=== PATIENT | female | born 1965 | race Caucasian/White ===

== ENCOUNTER 2016-10-21 08:25 | Emergency (ER) | payer OTHER ==
--- NOTE | ~2016-10-21 | CT4 ---
[facility] A Service of [facility] RADIOLOGY TEXT RESULTS PATIENT: KHUSHI COLE LOCATION: SED : 61 UNIT #: [id number] AGE: [address]: Marcel Wade MD SEX: F ORDER DR: [id number] [place] [id number] E MR#: [id number] Acc #: [id number] NAME: KHUSHI COLE : 1965 SEX: F STUDY DATE/TIME: 10/21/2016 0940 UNIT: SED ROOM: STUDY DESCRIPTION: CT Abd and Pelv Wo Cont Attending Physician: Marcel Wade M.D. Ordering Physician: Marcel Wade M.D. Primary Care Physician: Mathieu Alvarez M.D. MEDICAL IMAGING REPORT This report is preliminary unless electronic signature is present. EXAM CT abdomen and pelvis without contrast, 10/21/2016, 0940 hours. CLINICAL HISTORY Right lower quadrant abdominal pain beginning at 0430 hours today. Nausea, vomiting, and diarrhea today. COMPARISON None TECHNIQUE Helical noncontrasted images were obtained from the lung bases through the pubic symphysis. Sagittal and coronal reconstructions were performed. Total exam DLP 831 mGy-cm. This CT exam was performed with one or more of the following radiation dose reduction techniques: automatic exposure control, adjustment of mA and/or kV according to patient size, and iterative reconstruction. FINDINGS Images through the lung bases demonstrate no acute pulmonary density or pleural effusion. The distal esophagus is normal. Images through the abdomen demonstrate diffuse low attenuation of the liver consistent with fatty change. There is no focal liver lesion. The spleen, pancreas, gallbladder, and bile ducts are normal. The adrenal glands are normal. The left kidney demonstrates an exophytic low-density lesion measuring 2.9 cm and 0 Hounsfield units, most likely a simple cyst. There are no left intrarenal stones. No dilatation of the renal collecting system or ureter and no left ureteral calculus. [facility] A Service of [facility] RADIOLOGY TEXT RESULTS PATIENT: KHUSHI COLE LOCATION: SED : 61 UNIT #: [id number] AGE: [address]: Marcel Wade MD SEX: F ORDER DR: The right kidney demonstrates mild to moderate pelvocaliectasis and ureterectasis to the level of the very distal ureter just prior to the ureteropelvic junction, where there are 2 very tiny 2 mm stones seen (image 131, series 2). There are punctate nonobstructing stones in the lower pole of the right kidney. There is no right renal mass. There is atherosclerotic calcification of the abdominal aorta. There is no aneurysm. Stomach, small bowel are unopacified but normal in appearance. The terminal ileum is normal. The appendix is normal. No colonic lesions are seen. CT pelvis demonstrates a normal uterus and ovaries. There is no free fluid. IMPRESSION 1. There are 2 very tiny distal right ureteral calculi measuring 1-2 mm each resulting in mild to moderate pelvocaliectasis of the right kidney and ureterectasis. There is a punctate stone in the lower pole right kidney. 2. There is no left renal stone or ureteral dilatation. A simple cyst is seen measuring 2.9 cm. 3. Normal appendix. Dictated by... Rosa Maria Thomas M.D. THIS IS AN ELECTRONICALLY VERIFIED REPORT Rosa Maria Thomas M.D. at 10/21/2016 7:31 PM Uzair TD: 10/21/2016 12:01 JOB #: [id number] MEDICAL IMAGING REPORT Page 1 of 1
[2016-10-21] MEDS ORDERED: VITAMIN B12-FO1 EACH PO (08:34)
[2016-10-21] MEDS ORDERED: REMERON PO (08:34)
[2016-10-21 08:55] LABS: BASOPHIL# 0.1 X10e3 (0-0.3); BASOPHIL% 0.8 % (0-2.5); EOSINOPHIL# 0.1 X10e3 (0-0.7); EOSINOPHIL% 0.6 % (0.0-7.0); HEMATOCRIT 43.3 % (35.0-45.0); HEMOGLOBIN 14.7 gm/dL (12.0-16.0); LYMPHOCYTE# 3.2 X10e3 (1.0-3.5); LYMPHOCYTE% 20.4 % (17.0-45.0); MEAN CELL VOLUME 92.2 FL (83-96); MEAN CORPUSCULAR HEMOGLOBIN 31.3 PG (28-34); MEAN PLATELET VOLUME 8.8 FL (6.5-11.5); MONOCYTE# 1.1 X10e3 (0-1.0); MONOCYTE% 7.3 % (3.0-12.0); NEUTROPHIL% 70.9 % (40-75); PLATELET COUNT 293 X10e3 (140-420); RED BLOOD COUNT 4.69 X10e (3.90-5.30); RED CELL DISTRIBUTION WIDTH 13.4 % (11.0-15.5); WHITE BLOOD COUNT 15.6 X10e3 (4.0-10.5)
[2016-10-21 09:26] LABS: ALBUMIN SERUM 4.8 g/dL (3.5-5.0); ALKALINE PHOSPHATASE 69 U/L (32-92); ALT (SGPT) 67 U/L (10-40); AMYLASE 38 U/L (0-46); AST (SGOT) 41 U/L (10-42); BILIRUBIN,TOTAL 0.6 mg/dL (0.2-2.0); BLOOD UREA NITROGEN 16 mg/dL (9-23); BUN/CREATININE RATIO 17.77; CALCIUM SERUM 8.8 mg/dL (8.4-10.2); CARBON DIOXIDE 22 mmol/L (22-31); CHLORIDE 103 mmol/L (100-111); CREATININE SERUM 0.9 mg/dL (0.6-1.4); GLUCOSE FASTING 127 mg/dL (70-110); LIPASE 64 U/L (22-51); POTASSIUM 3.4 mmol/L (3.5-5.1); PROTEIN TOTAL SERUM 8.1 g/dL (6.0-8.3); SODIUM 134 mmol/L (135-145)
[2016-10-21 09:32] LABS: BILIRUBIN, DIRECT <0.1 mg/dL (0.0-0.2); BILIRUBIN,INDIRECT 0.5 mg/dL (0.0-0.9)
[2016-10-21 09:34] LABS: DIFF IND NO
[2016-10-21 10:27] LABS: URINE SOURCE CLEAN CATCH
[2016-10-21 10:30] LABS: URINE APPEARANCE CLOUDY; URINE BILIRUBIN NEG (NEG); URINE BLOOD 3+ (NEG); URINE COLOR YELLOW; URINE GLUCOSE NEG (NORM); URINE KETONE NEG (NEG); URINE LEUKOCYTE ESTERASE NEG (NEG); URINE NITRATE NEG (NEG); URINE PROTEIN TRACE (NEG); URINE SPECIFIC GRAVITY >=1.030 (1.003-1.035); URINE UROBILINOGEN 0.2 MG/DL (NORM)
[2016-10-21 10:38] LABS: MICRO INDICATED? YES
[2016-10-21 10:40] LABS: CULTURE INDICATED? YES; URINE BACTERIA 1+ (NEG); URINE RBC 25-50 /[HPF] (0-2)
[2016-10-21 10:41] LABS: URINE SQUAMOUS EPITHELIAL CELL MODERATE /[HPF]
== END 2016-10-21 11:41 | disposition home or self-care (01) ==
LOC: SED 08:25
PROVIDERS: Emergency Medicine
DX: N13.2 Hydronephrosis with renal and ureteral calculous obstruction (principal); Z88.0 Allergy status to penicillin; Z88.5 Allergy status to narcotic agent; Z79.899 Other long term (current) drug therapy
CPT/HCPCS: 36415; 74176; 80048; 80076; 81003; 82150; 83605; 83690; 85025; 87086; 96374; 96375; 96376; 99284; J1170; J1885; J2405